=== PATIENT | female | born 1945 | race Caucasian/White ===

== ENCOUNTER 2019-04-13 21:18 | Observation (INO) ==
--- NOTE | 2019-04-13 21:53 | DR.HTN ---
HPI - Time Seen Time seen: 21:43 - Primary Care Physician Primary Care Physician: MEMO LEE - Complaints Chief Complaint Doctors Comments: Patient states she thinks she had a stroke around 2:15 this evening when she was unable to raise her right hand to fix her hair; speech slurred talking out one side of her mouth; right side of her face drooping lasting about 30 minutes and got better but she is still having problems with her words. she is a patient of Dr. Lee in [place] and states she has never had a stroke. Her blood pressure has been elevated today because she did not take her blood pressure medicines last night. She denies chest pain, SOB, cold, cough, fever, vomiting but did have episode nausea earlier today. She denies tobacco or alcohol use but chews nicotine pills and gum because she likes the taste of the nicotine gum. She denies dysuria, hematuria, diarrhea or gerson. She denies history of cerebral hemorrhage. Chief Complaint:: PATIENT STATES AROUND 2-230 SHE FELT FUNNY AND WAS HAVING TROUBLE FIXING HER HAIR WITH HER RIGHT ARM AND NOTICED HER LEFT SIDE OF FACE WAS DROOPING, ALSO STATES SHE FORGOT TO TAKE BP MEDS LAST NIGHT AND TOOK THEM AROUND THE TIME OF HER EPISODE, STATES HE TOOK BP AT HOME AND IT WAS 153/85 AT THE TIME OF EPISODE AND WHEN SHE TOOK LISINOPRIL. Self Treatment fo Chief Complaint: LISINOPRIL - Reviewed Nurses Notes Reviewed: Yes - Source History Provided: Patient - Mode of Arrival Mode of Arrival: Ambulatory - Timing Onset of Chief Complaint: 04/13/19 - Severity Severity: Mild - Context Circumstances: Spontaneous Onset History of: Hypertension Treatment of HTN Prior to Arrival: Recent Cessation (did not take blood pressure medicine last night) - Associated Signs and Symptoms HTN Associated Signs and Symptoms: Weakness (right arm) PMH - PMH Past Medical History: Yes Past Medical History: Hypertension Past Medical History Comment: "THYROID " Past Surgical History: No Surgical History: No History - Family History History of Family Medical Conditions: No - Social History Does patient currently use any type of tobacco product: No Have you used tobacco products in the last 12 months: No Type of Tobacco Use: None Does any household member use tobacco: No Alcohol Use: None Do you use any recreational Drugs:: No Lives With: Spouse Lives Where: Home - infectious screening In the last 2 months have you had wt loss of >10#?: NO Have you had fever, night sweats or hemotysis?: No Have you traveled outside the country in the last 6 months?: No Isolation: Standard ROS - Review of Systems Constitutional: No Symptoms Reported, Weakness (right arm) Eyes: No Symptoms Reported ENTM: No Symptoms Reported Respiratoy: No Symptoms Reported. negative: See HPI, Productive Cough, Non- Productive Cough, Moist Cough, Dry Cough, Hacking Cough, Barking Cough, Brassy Cough, Orthopnea, Short of Breath, Stridor, Wheezing, Hemoptysis, Other Cardiovascular: No Symptoms Reported. negative: See HPI, Chest Pain, Edema, Palpitations, Syncope, Cyanosis, Skin Mottling, Other Gastrointestinal/Abdominal: No Symptoms Reported, Nausea. negative: See HPI, Abdominal Pain, Constipation, Diarrhea, Vomiting, Food Intolerance, Other Genitourinary: No Symptoms Reported. negative: See HPI, Discharge, Dysuria, Frequency, Hematuria, Pain, Bleeding, Other Neurological: No Symptoms Reported, Weakness, Speech Problem. negative: See HPI, Anxiety, Depressed, Emotional Problems, Headache, Numbness, Paresthesia, Pre-existing Deficit, Seizure, Tingling, Tremors, Dizziness, Problems Walking, Other Musculoskeletal: No Symptoms Reported, Right, Arm (weakness) Hematologic/Lymphatic: No Symptoms Reported. negative: See HPI, Anemia, Blood Clots, Easy Bleeding, Easy Bruising, Swollen Glands, Lymphadenopathy, Other Endocrine: No Symptoms Reported Psychiatric: No Symptoms Reported. negative: See HPI, Anxiety, Depression, Hallucinations, Excessive crying, Suicidal, Other PE - General Limitations: No Limitations General Appearance: Alert, In No Apparent Distress. negative: Appears Intoxicated, Anxious, Lethargic, Obtunded, In Distress, Obese, Cachectic, Other - Head Head Exam: Normal Inspection, Atraumatic, Normocephalic - Eyes Eye exam: Normal Appearance, PERRL, EOMI. negative: Scleral Icterus, Conjunctival Injection, Nystagmus, Miosis, Mydrasis, Periorbital Swelling, Periorbital Tenderness, Other Pupils: Regular, Round: Bilateral, Reactive: Bilateral Sclera/Conjunctival: Normal Inspection: Bilateral - ENT ENT Exam: Normal Exam, Normal Oropharynx, Normal External Ear Exam, Mucous Membranes Moist, TM's Normal Bilaterally - Neck Neck Exam: Normal Inspection, Full ROM, Trachea Midline. negative: Tenderness, Meningismus, Lymphadenopathy, Thyromegaly, Other - Chest Chest Inspection: Normal Inspection, Symmetric Chest Wall Rise. negative: Tenderness, Rash, Abscess, Other - Respiratory Respiratory Exam: Normal Lung Sounds Bilat Respiratory Exam: Bilateral Clear to Auscultation - Cardiovascular Cardiovascular Exam: Regular Rate, Normal Rhythm, Normal Heart Sounds. negative: Bradycardia, Tachycardia, Irregular Rhythm, Systolic Murmur, Diastolic Murmur, Rubs, Gallop, Clicks, JVD, +S1, +S2, +S3, +S4, Other - Abdominal Exam Abdominal Exam: Normal Inspection, Normal Bowel Sounds, Soft. negative: Distention, Tenderness, Guarding, Rebound, Rigidity, Dimnished Bowel Sounds, Hyperactive Bowel Sounds, Hypoactive Bowel Sounds, Organomegaly, Trauma, Incision, Ascites, Mass, Bruit, Pulsatile Mass, Hernia, Other Abdominal Tenderness: negative: RUQ, RLQ, LUQ, LLQ, Epigastrium, Suprapubic, Diffuse, Mild, Moderate, Severe, Other - Extremities Extremities Exam: Normal Inspection, Full ROM, Normal Capillary Refill. negative: Tenderness, Edema, Joint Swelling, Calf Tenderness, Other - Back Back Exam: Normal Inspection, Full ROM, Tenderness. negative: (R) CVA Tenderness, (L) CVA Tenderness, Muscle Spasm, Paraspinal Tenderness, Vertebral Tenderness, Rashes, (R) Sciatic Notch Tenderness, (L) Sciatic Notch Tendern, (R) Straight Leg Raise, (L) Straight Leg Raise, Other - Neurologic Neurological Exam: Alert, Oriented X3, CN II-XII Intact, Reflexes Normal. negative: Normal Gait (gait not tested) Patient Oriented To: Person, Place, Time Speech: Fluid Speech Cranial Nerve Exam: EOM Function (II, III, IV, ): Normal, Facial Sensation (V): Normal, Facial Palsy (VII): Normal, Gag reflex (XI): Normal, Spinal Accessory Function (XI): Normal, Tongue Deviation: Normal Cerebellar Function: Finger to Nose: Normal Cerebellar Function: negative: Normal Gait (gait not tested) Motor Strength - LUE: 5/5 Motor Strength - RUE: 5/5 Motor Strength - LLE: 5/5 Motor Strength - RLE: 5/5 Upper Motor Neuron Exam: Babinski Sign: Normal Sensory Exam Upper Extremity: Light Touch: Normal, 2 Point Discrimination: Normal Sensory Exam Lower Extremity: Light Touch: Normal, 2 Point Discrimination: Normal DTR: bicep (L): 2+, bicep (R): 2+, Patellar (L): 2+, patellar (R): 2+ - Psychiatric Psychiatric Exam: Normal Affect, Normal Mood. negative: Depressed, Agitated, Anxious, Flat Affect, Manic, Homicidal Ideation, Suicidal Ideation, Other - Skin Skin Exam: Warm, Dry, Intact, Normal Color. negative: Rash, Cyanosis, Diaphoresis, Erythema, Pallor, Mottled, Other - Vital Signs Vitals: Pulse Rate 53 Respiratory Rate 18 Blood Pressure 229/92 O2 Sat by Pulse Oximetry 97 Course - Reevaluation 1st: Improved - Consultation Called: 00:22 Call Returned: 00:22 (Dr. Rodas to admit) - Education/Counseling Education/Counseling: Patient, Family Educated On: Treatment, Diagnosis, Prognosis, Needs for Follow Up ROR - Labs Reviewed Laboratory Results Reviewed?: Yes (All labs and x-ray results reviewed and discussed with patient) Result Diagrams: 04/13/19 22:10 04/13/19 22:10 - XRAY XRAY Interpreted by: Radiologist (CT head: No acute intracranial hemorrhage) XRAY Findings: CXR:Mild cardiomegaly without acute chest process. - EKG Rate: 47 [place]: Normal Rhythm: SB, PACs Block: None Hypertrophy: None ST: Nonsp - Labs Reviewed Laboratory: WBC 6.6 X10^3/uL (3.6-10.0) 04/13/19 22:10 RBC 4.41 X10^6/uL (3.5-5.4) 04/13/19 22:10 Hgb 12.8 g/dL (12.0-16.0) 04/13/19 22:10 Hct 37.5 % (36.0-47.0) 04/13/19 22:10 MCV 84.9 fL (80.0-100.0) 04/13/19 22:10 MCH 28.9 pg (27.0-34.0) 04/13/19 22:10 MCHC 34.1 g/dL (33.0-35.0) 04/13/19 22:10 RDW 13.4 % (11.6-16.5) 04/13/19 22:10 Plt Count 230 X10^3/uL (150.0-450.0) 04/13/19 22:10 MPV 8.5 fL (7.4-11.0) 04/13/19 22:10 Neut % (Auto) 57.4 % (42.0-75.0) 04/13/19 22:10 Lymph % (Auto) 30.0 % (21.0-51.0) 04/13/19 22:10 [place] % (Auto) 9.9 % (0.0-13.0) 04/13/19 22:10 Eos % (Auto) 2.0 % (0.9-2.9) 04/13/19 22:10 Baso % (Auto) 0.7 % (0.2-1.0) 04/13/19 22:10 Neut # (Auto) 3.8 x10^3/uL (2.2-4.8) 04/13/19 22:10 Lymph # (Auto) 2.0 X10^3/uL (1.3-2.9) 04/13/19 22:10 [place] # (Auto) 0.7 x10^3/uL (0.3-0.8) 04/13/19 22:10 Eos # (Auto) 0.1 x10^3/uL (0.0-0.2) 04/13/19 22:10 Baso # (Auto) 0.0 X10^3/uL (0.0-0.1) 04/13/19 22:10 Absolute Nucleated RBC 0.0 /100WBC 04/13/19 22:10 PT 13.9 SECONDS (11.8-14.3) 04/13/19 22:10 INR Target Range - 04/13/19 22:10 INR 1.11 (0.8-1.3) 04/13/19 22:10 APTT 25.3 SECONDS (22.9-36.5) 04/13/19 22:10 PTT Comment - 04/13/19 22:10 D-Dimer 332 ng/mL (0-400) 04/13/19 22:10 Sodium 140 mmol/L (136-145) 04/13/19 22:10 Corrected Sodium 140 mmol/L (136-145) 04/13/19 22:10 Potassium 4.1 mmol/L (3.5-5.1) 04/13/19 22:10 Chloride 106 mmol/L (98-107) 04/13/19 22:10 Carbon Dioxide 29.8 mmol/L (21-32) 04/13/19 22:10 BUN 22 mg/dL (7-18) H 04/13/19 22:10 Creatinine 1.00 mg/dL (0.55-1.02) 04/13/19 22:10 Est GFR (MDRD) Af Amer > 60 (>60) 04/13/19 22:10 Est GFR (MDRD) Non-Af 57 (>60) L 04/13/19 22:10 Glucose 114 mg/dL (65-99) H 04/13/19 22:10 Calcium 8.7 mg/dL (8.5-10.1) 04/13/19 22:10 Corrected Calcium 9.4 mg/dL (8.5-10.1) 04/13/19 22:10 Magnesium 2.2 mg/dL (1.7-2.9) 04/13/19 22:10 Total Bilirubin 0.30 mg/dL (0.2-1.0) 04/13/19 22:10 AST 15 Units/L (15-37) 04/13/19 22:10 ALT 15 Units/L (12-78) 04/13/19 22:10 Alkaline Phosphatase 84 Units/L (46-116) 04/13/19 22:10 Creatine Kinase 61 Units/L (26-192) 04/13/19 22:10 CK-MB (CK-2) < 1.0 ng/mL (0-4.0) 04/13/19 22:10 CK/CKMB % Calc 1.6 % (<4) 04/13/19 22:10 Troponin I < 0.02 ng/mL (0-1.5) 04/13/19 22:10 Total Protein 6.3 g/dL (6.4-8.2) L 04/13/19 22:10 Albumin 3.1 g/dL (3.4-5.0) L 04/13/19 22:10 Globulin 3.2 g/dL (2.5-4.5) 04/13/19 22:10 Albumin/Globulin Ratio 1.0 Ratio (1.1-2.1) L 04/13/19 22:10 Opioid - Opioid Risk Tool Total: 0 Total Score Risk Category: Low Risk - Diagnosis Discharge Problem: Acute alteration in mental status, Acute right hemiparesis, Sinus bradycardia, Accelerated hypertension, Cardiomegaly, Hyperglycemia - Discharge Plan Disposition: ADMITTED INPATIENT Condition: Stable - Follow ups/Referrals Follow ups/Referrals: MEMO LEE [Primary Care Provider] - 3 days - Instructions
[2019-04-13] MEDS ORDERED: CATAPRES TAB 0.2 MG PO ONE (21:55)
[2019-04-13] MEDS ORDERED: CATAPRES TAB 0.2 MG ONE (22:11)
[2019-04-13 22:22] LABS: BASOPHILS % (AUTO) 0.7 % (0.2-1.0); EOSINOPHILS # (AUTO) 0.1 x10^3/uL (0.0-0.2); HEMATOCRIT 37.5 % (36.0-47.0); HEMOGLOBIN 12.8 g/dL (12.0-16.0); MEAN CORPUSCULAR HEMOGLOBIN 28.9 pg (27.0-34.0); MEAN CORPUSCULAR HGB CONC 34.1 g/dL (33.0-35.0); MEAN CORPUSCULAR VOLUME 84.9 fL (80.0-100.0); MEAN PLATELET VOLUME 8.5 fL (7.4-11.0); MONOCYTES # (AUTO) 0.7 x10^3/uL (0.3-0.8); MONOCYTES % (AUTO) 9.9 % (0.0-13.0); NEUTROPHILS # (AUTO) 3.8 x10^3/uL (2.2-4.8); NEUTROPHILS % (AUTO) 57.4 % (42.0-75.0); PLATELET COUNT 230 X10^3/uL (150.0-450.0); RED BLOOD COUNT 4.41 X10^6/uL (3.5-5.4); RED CELL DISTRIBUTION WIDTH 13.4 % (11.6-16.5); WHITE BLOOD COUNT 6.6 X10^3/uL (3.6-10.0)
[2019-04-13 22:39] LABS: BLOOD UREA NITROGEN 22 mg/dL (7-18); CALCIUM 8.7 mg/dL (8.5-10.1); CARBON DIOXIDE 29.8 mmol/L (21-32); CHLORIDE 106 mmol/L (98-107); COR NA(FOR HYPERGLY) 140 mmol/L (136-145); SODIUM 140 mmol/L (136-145); TROPONIN I < 0.02 ng/mL (0-1.5); eGFR NON BLACK RACES 57 (>60)
[2019-04-13 22:44] LABS: ALANINE AMINOTRANSFERASE 15 Units/L (12-78); ALBUMIN 3.1 g/dL (3.4-5.0); ALKALINE PHOSPHATASE 84 Units/L (46-116); ASPARTATE AMINO TRANSFERASE 15 Units/L (15-37); CKMB % 1.6 % (<4); COR CA(FOR HYPOALB) 9.4 mg/dL (8.5-10.1); CREATINE KINASE 61 Units/L (26-192); CREATINE KINASE MB < 1.0 ng/mL (0-4.0); MAGNESIUM 2.2 mg/dL (1.7-2.9); TOTAL PROTEIN 6.3 g/dL (6.4-8.2)
--- NOTE | 2019-04-13 23:16 | CT ---
CT head without contrastIndication: Right arm weakness, speech deficiencyComparison: NoneTechnique: CT images of the head were obtained without contrast. Automatic exposure control was utilized.Findings: There is age-appropriate generalized cortical involution with concomitant ventricular and sulcal enlargement. There is no evidence for acute bleed, mass effect, or abnormal extra-axial collection. No acute osseous abnormality. The paranasal sinuses and mastoid air cells are clear.Impression: No acute intracranial hemorrhage.Consider MRI if there is concern for acute infarct and it will make a difference in patient management.Reported By:
--- NOTE | 2019-04-13 23:18 | RAD ---
Chest, 1 viewIndication: Chest painComparison: NoneFindings: Cardiac silhouette is mildly enlarged. The lungs are hypoinflated but grossly clear without overt edema or focal infiltrates. No significant pleural effusion or pneumothorax.Impression: Mild cardiomegaly without acute chest process.Reported By:
[2019-04-14] MEDS ORDERED: NS 1/2 1000 ML IV 1,000 ML IV ONE (02:01)
[2019-04-14] MEDS: NS 1/2 1000 ML IV 1,000 ML IV SCH (02:05)
[2019-04-14 03:08] VITALS: BMI 32.2
[2019-04-14 06:10] LABS: BLOOD UREA NITROGEN 19 mg/dL (7-18); CALCIUM 8.6 mg/dL (8.5-10.1); CARBON DIOXIDE 28.4 mmol/L (21-32); CHLORIDE 106 mmol/L (98-107); COR NA(FOR HYPERGLY) 140 mmol/L (136-145); CREATININE 0.86 mg/dL (0.55-1.02); SODIUM 139 mmol/L (136-145); eGFR NON BLACK RACES > 60 (>60)
[2019-04-14 06:23] LABS: CHOL/HDL RATIO 4.6 (0.0-5.0); TSH (3RD GENERATION) 1.367 uIU/mL (0.358-3.74)
[2019-04-14] MEDS ORDERED: ZESTRIL TAB 20 MG PO SCH (09:00)
[2019-04-14] MEDS ORDERED: ZESTRIL TAB 20 MG ONE (09:30)
[2019-04-14] MEDS: SYNTHROID 88 mcg TAB PO SCH (09:52)
[2019-04-14] MEDS: PEPCID 20 MG IV PREMIX* 20 MG/50 ML BAG IV SCH (09:52)
[2019-04-14] MEDS ORDERED: CATAPRES TAB 0.1 MG ONE (12:58)
[2019-04-14] MEDS ORDERED: ZOFRAN INJ 4 MG VIAL ONE (12:58)
[2019-04-14] MEDS ORDERED: ZOFRAN INJ 4 MG VIAL IVP ONE (13:00)
--- NOTE | 2019-04-14 13:14 | DR.H&P ---
H&P History & Physical for Day of: H&P Date: 04/14/19 Chief Complaint Chief Complaint: Right hand weakness and face droop Allergies Allergies Allergy/AdvReac Type Severity Reaction Status Date / Time No Known Drug Allergies Allergy Verified 04/13/19 21:32 History of Present Illness History of Present Illness: Pt is a 73 yo f pmhx HTN, Hypothyroidism, presenting after having episode of right hand weakness when she was brushing her hair and facial droop. She also reports feeling of imbalance. She reports event lasted 20-30 minutes, her was also with her. She reports her blood pressure being elevated on arrival in ED. Denies headache, chest pain, shortness of breath, abdominal pain, edema. Past Medical History Past Medical History: Hypertension Past Surgical History Surgical History: No History Family History Family Medical History: Cancer Social History Does patient currently use any type of tobacco product: Yes Have you used tobacco products in the last 12 months: Yes Type of Tobacco Use: [place]orette How many years tobacco product used: 40 Does any household member use tobacco: No Alcohol Use: None Drug Use: None Medications Home Medications: No Known Drug Allergies Allergy (Verified 04/13/19 21:32) CONTINUE taking the following medications duloxetine 60 mg PO DAILY 04/13/19 [History] levothyroxine 88 mcg PO DAILY 04/13/19 [History] lisinopril 20 mg PO DAILY 04/13/19 [History] Labs Result Diagrams: 04/13/19 22:10 04/14/19 05:06 Labs: Laboratory WBC 6.6 X10^3/uL (3.6-10.0) 04/13/19 22:10 RBC 4.41 X10^6/uL (3.5-5.4) 04/13/19 22:10 Hgb 12.8 g/dL (12.0-16.0) 04/13/19 22:10 Hct 37.5 % (36.0-47.0) 04/13/19 22:10 MCV 84.9 fL (80.0-100.0) 04/13/19 22:10 MCH 28.9 pg (27.0-34.0) 04/13/19 22:10 MCHC 34.1 g/dL (33.0-35.0) 04/13/19 22:10 RDW 13.4 % (11.6-16.5) 04/13/19 22:10 Plt Count 230 X10^3/uL (150.0-450.0) 04/13/19 22:10 MPV 8.5 fL (7.4-11.0) 04/13/19 22:10 Neut % (Auto) 57.4 % (42.0-75.0) 04/13/19 22:10 Lymph % (Auto) 30.0 % (21.0-51.0) 04/13/19 22:10 [place] % (Auto) 9.9 % (0.0-13.0) 04/13/19 22:10 Eos % (Auto) 2.0 % (0.9-2.9) 04/13/19 22:10 Baso % (Auto) 0.7 % (0.2-1.0) 04/13/19 22:10 Neut # (Auto) 3.8 x10^3/uL (2.2-4.8) 04/13/19 22:10 Lymph # (Auto) 2.0 X10^3/uL (1.3-2.9) 04/13/19 22:10 [place] # (Auto) 0.7 x10^3/uL (0.3-0.8) 04/13/19 22:10 Eos # (Auto) 0.1 x10^3/uL (0.0-0.2) 04/13/19 22:10 Baso # (Auto) 0.0 X10^3/uL (0.0-0.1) 04/13/19 22:10 Absolute Nucleated RBC 0.0 /100WBC 04/13/19 22:10 PT 13.9 SECONDS (11.8-14.3) 04/13/19 22:10 INR Target Range - 04/13/19 22:10 INR 1.11 (0.8-1.3) 04/13/19 22:10 APTT 25.3 SECONDS (22.9-36.5) 04/13/19 22:10 PTT Comment - 04/13/19 22:10 D-Dimer 332 ng/mL (0-400) 04/13/19 22:10 Sodium 139 mmol/L (136-145) 04/14/19 05:06 Corrected Sodium 140 mmol/L (136-145) 04/14/19 05:06 Potassium 4.4 mmol/L (3.5-5.1) 04/14/19 05:06 Chloride 106 mmol/L (98-107) 04/14/19 05:06 Carbon Dioxide 28.4 mmol/L (21-32) 04/14/19 05:06 BUN 19 mg/dL (7-18) H 04/14/19 05:06 Creatinine 0.86 mg/dL (0.55-1.02) 04/14/19 05:06 Est GFR (MDRD) Af Amer > 60 (>60) 04/14/19 05:06 Est GFR (MDRD) Non-Af > 60 (>60) 04/14/19 05:06 Glucose 132 mg/dL (65-99) H 04/14/19 05:06 Calcium 8.6 mg/dL (8.5-10.1) 04/14/19 05:06 Corrected Calcium 9.4 mg/dL (8.5-10.1) 04/13/19 22:10 Magnesium 2.2 mg/dL (1.7-2.9) 04/13/19 22:10 Total Bilirubin 0.30 mg/dL (0.2-1.0) 04/13/19 22:10 AST 15 Units/L (15-37) 04/13/19 22:10 ALT 15 Units/L (12-78) 04/13/19 22:10 Alkaline Phosphatase 84 Units/L (46-116) 04/13/19 22:10 Creatine Kinase 61 Units/L (26-192) 04/13/19 22:10 CK-MB (CK-2) < 1.0 ng/mL (0-4.0) 04/13/19 22:10 CK/CKMB % Calc 1.6 % (<4) 04/13/19 22:10 Troponin I < 0.02 ng/mL (0-1.5) 04/13/19 22:10 Total Protein 6.3 g/dL (6.4-8.2) L 04/13/19 22:10 Albumin 3.1 g/dL (3.4-5.0) L 04/13/19 22:10 Globulin 3.2 g/dL (2.5-4.5) 04/13/19 22:10 Albumin/Globulin Ratio 1.0 Ratio (1.1-2.1) L 04/13/19 22:10 Triglycerides 116 mg/dL (0-150) 04/14/19 05:06 Cholesterol 155 mg/dL (0-200) 04/14/19 05:06 LDL Cholesterol, Calc 98 mg/dL (0-100) 04/14/19 05:06 HDL Cholesterol 34 mg/dL (40-60) L 04/14/19 05:06 Cholesterol/HDL Ratio 4.6 (0.0-5.0) 04/14/19 05:06 TSH 3rd Generation 1.367 uIU/mL (0.358-3.74) 04/14/19 05:06 Urine Opiates Screen Negative (NEG=<300) 04/13/19 04:42 Urine Methadone Screen Negative (NEG=<300) 04/13/19 04:42 Ur Barbiturates Screen Negative (NEG=<200) 04/13/19 04:42 Ur Phencyclidine Scrn Negative (NEG=<25) 04/13/19 04:42 Ur Amphetamines Screen Negative (NEG=<1000) 04/13/19 04:42 U Benzodiazepines Scrn Negative (NEG=<200) 04/13/19 04:42 Urine Cocaine Screen Negative (NEG=<300) 04/13/19 04:42 U Marijuana (THC) Screen Negative (NEG=<50) 04/13/19 04:42 Review of Systems Constitutional: denies Fever and Chills Eyes: No Symptoms Reported ENT: Other (mouth droop during episode ) Respiratory: No Symptoms Reported Cardiovascular: No Symptoms Reported Gastrointestinal: No Symptoms Reported Genitourinary: No Symptoms Reported Musculoskeletal: No Symptoms Reported Skin: No Symptoms Reported Neurological: Weakness (right arm), Incoordination and Change in Speech; denies Seizures Physical Exam Vital Signs: Temperature 97.6 F Pulse Rate [Right] 48 Pulse Rate 53 Respiratory Rate 18 Blood Pressure [Right Arm] 202/86 Blood Pressure 229/92 O2 Sat by Pulse Oximetry 98 Oriented: Normal Eyes: Normal Ear: Normal Nose: Normal Respiratory: Clear Throughout Cardiovascular: Normal : Normal Auscultation: Bowel Sounds: Normal Palpation: Normal Tenderness: Normal Skin: Normal Musculoskeletal: Normal Psychiatric: Normal Speech Pattern: Clear Assessment/Plan (1) TIA (transient ischemic attack): Status: Acute Plan: CT head negative, will evaluate further with MRI brain, Echo, Carotid doppler. Continue to monitor. (2) Sinus bradycardia: Status: Acute Plan: Continue to monitor. (3) Accelerated hypertension: Status: Acute Plan: Pt taking lisinopril. Will monitor BP and adjust medications accordingly. (4) Hyperglycemia: Status: Acute Plan: will get A1c.
[2019-04-14] MEDS: CATAPRES TAB 0.1 MG PO ONE ×2 (13:19→13:20)
[2019-04-14] MEDS: LIPITOR TAB 20 MG PO SCH (16:58)
[2019-04-15] MEDS: NS 1/2 1000 ML IV 1,000 ML IV SCH ×2 (02:58→05:26)
[2019-04-15 05:32] LABS: BASOPHILS % (AUTO) 0.5 % (0.2-1.0); EOSINOPHILS # (AUTO) 0.2 x10^3/uL (0.0-0.2); EOSINOPHILS % (AUTO) 1.9 % (0.9-2.9); HEMATOCRIT 38.5 % (36.0-47.0); HEMOGLOBIN 13.1 g/dL (12.0-16.0); LYMPHOCYTES # (AUTO) 2.4 X10^3/uL (1.3-2.9); LYMPHOCYTES % (AUTO) 30.5 % (21.0-51.0); MEAN CORPUSCULAR HEMOGLOBIN 29.2 pg (27.0-34.0); MEAN CORPUSCULAR VOLUME 85.7 fL (80.0-100.0); MEAN PLATELET VOLUME 9.1 fL (7.4-11.0); MONOCYTES # (AUTO) 0.6 x10^3/uL (0.3-0.8); MONOCYTES % (AUTO) 7.5 % (0.0-13.0); NEUTROPHILS # (AUTO) 4.8 x10^3/uL (2.2-4.8); NEUTROPHILS % (AUTO) 59.6 % (42.0-75.0); PLATELET COUNT 213 X10^3/uL (150.0-450.0); RED CELL DISTRIBUTION WIDTH 13.7 % (11.6-16.5)
[2019-04-15] MEDS ORDERED: NS 1/2 1000 ML IV 1,000 ML IV ONE (05:34)
[2019-04-15 05:40] LABS: ALANINE AMINOTRANSFERASE 15 Units/L (12-78); ALBUMIN 3.1 g/dL (3.4-5.0); ALKALINE PHOSPHATASE 80 Units/L (46-116); ASPARTATE AMINO TRANSFERASE 15 Units/L (15-37); BLOOD UREA NITROGEN 16 mg/dL (7-18); CALCIUM 8.5 mg/dL (8.5-10.1); CARBON DIOXIDE 26.2 mmol/L (21-32); CHLORIDE 105 mmol/L (98-107); COR CA(FOR HYPOALB) 9.2 mg/dL (8.5-10.1); COR NA(FOR HYPERGLY) 140 mmol/L (136-145); CREATININE 0.84 mg/dL (0.55-1.02); MAGNESIUM 2.1 mg/dL (1.7-2.9); SODIUM 140 mmol/L (136-145); TOTAL PROTEIN 6.4 g/dL (6.4-8.2); eGFR NON BLACK RACES > 60 (>60)
[2019-04-15] MEDS ORDERED: ZESTRIL TAB 20 MG ONE (08:08)
[2019-04-15] MEDS ORDERED: ZESTRIL TAB 20 MG PO SCH (09:00)
[2019-04-15] MEDS: SYNTHROID 88 mcg TAB PO SCH (09:47)
[2019-04-15] MEDS: PEPCID 20 MG IV PREMIX* 20 MG/50 ML BAG IV SCH (09:47)
[2019-04-15] MEDS: LIPITOR TAB 20 MG PO SCH (09:48)
--- NOTE | 2019-04-15 10:12 | PCM.PROG ---
Progress Note Progress Note for Day of Date of Exam: 04/15/19 Subjective Subjective: Pt had accelerated hypertension yesterday that caused her to feel nauseous. She was given clonidine x 1 dose that helped control blood pressure. Will increase lisinopril to 40mg. Added Lipitor and ASA 81 to reduce risk of CVA after TIA. Past Medical Family Social History Past Med/Fam/Surg Hx: No changes since H&P Allergies: Allergies No Known Drug Allergies Allergy (Verified 04/13/19 21:32) Review of Systems ROS: No change since H&P Vital Signs and I&O's Vital Signs: Temperature 98.3 F Pulse Rate [Right] 78 Pulse Rate 53 Respiratory Rate 18 Blood Pressure [Right Arm] 158/68 Blood Pressure 229/92 O2 Sat by Pulse Oximetry 98 Intake and Output: Intake & Output 04/12/19 04/13/19 04/14/19 04/15/19 23:59 23:59 23:59 23:59 Intake Total 800 / 800 100 / 100 Balance 800 / 800 100 / 100 Physical Exam Oriented: Normal Eyes: Normal Ear: Normal Nose: Normal Cardiovascular: Normal : Normal Auscultation: Bowel Sounds: Normal Tenderness: Normal Skin: Normal Musculoskeletal: Normal Psychiatric: Normal Mood Description: Calm Speech Pattern: Clear and Appropriate Laboratory and Diagnostics Result Diagrams: 04/15/19 04:50 04/15/19 04:50 Labs: Laboratory WBC 8.0 X10^3/uL (3.6-10.0) 04/15/19 04:50 RBC 4.50 X10^6/uL (3.5-5.4) 04/15/19 04:50 Hgb 13.1 g/dL (12.0-16.0) 04/15/19 04:50 Hct 38.5 % (36.0-47.0) 04/15/19 04:50 MCV 85.7 fL (80.0-100.0) 04/15/19 04:50 MCH 29.2 pg (27.0-34.0) 04/15/19 04:50 MCHC 34.0 g/dL (33.0-35.0) 04/15/19 04:50 RDW 13.7 % (11.6-16.5) 04/15/19 04:50 Plt Count 213 X10^3/uL (150.0-450.0) 04/15/19 04:50 MPV 9.1 fL (7.4-11.0) 04/15/19 04:50 Neut % (Auto) 59.6 % (42.0-75.0) 04/15/19 04:50 Lymph % (Auto) 30.5 % (21.0-51.0) 04/15/19 04:50 [place] % (Auto) 7.5 % (0.0-13.0) 04/15/19 04:50 Eos % (Auto) 1.9 % (0.9-2.9) 04/15/19 04:50 Baso % (Auto) 0.5 % (0.2-1.0) 04/15/19 04:50 Neut # (Auto) 4.8 x10^3/uL (2.2-4.8) 04/15/19 04:50 Lymph # (Auto) 2.4 X10^3/uL (1.3-2.9) 04/15/19 04:50 [place] # (Auto) 0.6 x10^3/uL (0.3-0.8) 04/15/19 04:50 Eos # (Auto) 0.2 x10^3/uL (0.0-0.2) 04/15/19 04:50 Baso # (Auto) 0.0 X10^3/uL (0.0-0.1) 04/15/19 04:50 Absolute Nucleated RBC 0.1 /100WBC 04/15/19 04:50 PT 13.9 SECONDS (11.8-14.3) 04/13/19 22:10 INR Target Range - 04/13/19 22:10 INR 1.11 (0.8-1.3) 04/13/19 22:10 APTT 25.3 SECONDS (22.9-36.5) 04/13/19 22:10 PTT Comment - 04/13/19 22:10 D-Dimer 332 ng/mL (0-400) 04/13/19 22:10 Sodium 140 mmol/L (136-145) 04/15/19 04:50 Corrected Sodium 140 mmol/L (136-145) 04/15/19 04:50 Potassium 4.1 mmol/L (3.5-5.1) 04/15/19 04:50 Chloride 105 mmol/L (98-107) 04/15/19 04:50 Carbon Dioxide 26.2 mmol/L (21-32) 04/15/19 04:50 BUN 16 mg/dL (7-18) 04/15/19 04:50 Creatinine 0.84 mg/dL (0.55-1.02) 04/15/19 04:50 Est GFR (MDRD) Af Amer > 60 (>60) 04/15/19 04:50 Est GFR (MDRD) Non-Af > 60 (>60) 04/15/19 04:50 Glucose 120 mg/dL (65-99) H 04/15/19 04:50 Hemoglobin A1c 6.3 % 04/14/19 05:06 Calcium 8.5 mg/dL (8.5-10.1) 04/15/19 04:50 Corrected Calcium 9.2 mg/dL (8.5-10.1) 04/15/19 04:50 Magnesium 2.1 mg/dL (1.7-2.9) 04/15/19 04:50 Total Bilirubin 0.40 mg/dL (0.2-1.0) 04/15/19 04:50 AST 15 Units/L (15-37) 04/15/19 04:50 ALT 15 Units/L (12-78) 04/15/19 04:50 Alkaline Phosphatase 80 Units/L (46-116) 04/15/19 04:50 Creatine Kinase 61 Units/L (26-192) 04/13/19 22:10 CK-MB (CK-2) < 1.0 ng/mL (0-4.0) 04/13/19 22:10 CK/CKMB % Calc 1.6 % (<4) 04/13/19 22:10 Troponin I < 0.02 ng/mL (0-1.5) 04/14/19 14:54 Total Protein 6.4 g/dL (6.4-8.2) 04/15/19 04:50 Albumin 3.1 g/dL (3.4-5.0) L 04/15/19 04:50 Globulin 3.3 g/dL (2.5-4.5) 04/15/19 04:50 Albumin/Globulin Ratio 0.9 Ratio (1.1-2.1) L 04/15/19 04:50 Triglycerides 116 mg/dL (0-150) 04/14/19 05:06 Cholesterol 155 mg/dL (0-200) 04/14/19 05:06 LDL Cholesterol, Calc 98 mg/dL (0-100) 04/14/19 05:06 HDL Cholesterol 34 mg/dL (40-60) L 04/14/19 05:06 Cholesterol/HDL Ratio 4.6 (0.0-5.0) 04/14/19 05:06 TSH 3rd Generation 1.367 uIU/mL (0.358-3.74) 04/14/19 05:06 Urine Opiates Screen Negative (NEG=<300) 04/13/19 04:42 Urine Methadone Screen Negative (NEG=<300) 04/13/19 04:42 Ur Barbiturates Screen Negative (NEG=<200) 04/13/19 04:42 Ur Phencyclidine Scrn Negative (NEG=<25) 04/13/19 04:42 Ur Amphetamines Screen Negative (NEG=<1000) 04/13/19 04:42 U Benzodiazepines Scrn Negative (NEG=<200) 04/13/19 04:42 Urine Cocaine Screen Negative (NEG=<300) 04/13/19 04:42 U Marijuana (THC) Screen Negative (NEG=<50) 04/13/19 04:42 Plan (1) TIA (transient ischemic attack): Status: Acute Plan: CT head negative, will evaluate further with MRI brain, Echo, Carotid doppler. ASA 81mg, Lipitor 20mg Continue to monitor. (2) Sinus bradycardia: Status: Acute Plan: Continue to monitor. Resolved (3) Accelerated hypertension: Status: Acute Plan: Lisinopril 40mg (4) Hyperglycemia: Status: Acute Plan: A1c 6.4 (5) Prediabetes: Status: Acute Plan: A1c 6.4
[2019-04-15] MEDS: APRESOLINE INJ 20 MG VIAL IVP PRN ×2 (12:26→23:45)
[2019-04-15] MEDS: ASPIRIN EC 81 MG PO SCH (12:28)
[2019-04-15] MEDS: LOVENOX INJ 40 MG SYR SC SCH (12:28)
[2019-04-15] MEDS: VISTARIL PO PRN ×2 (13:34→23:25)
--- NOTE | 2019-04-15 14:31 | VAS ---
History: TIA and dizzinessStudy: Carotid duplex ultrasoundComparison: NoneFindings: Images show intimal thickening. There is a small calcified plaque in the right carotid bulb. There is severe calcified plaque at the left carotid bifurcation and carotid bulb.There is antegrade flow in the vertebral arteries.Peak systolic velocity in the right internal carotid artery is 127 centimeters/second and in the distal right common carotid artery is 94.67 centimeters/second for ratio of 1.34.Peak systolic velocity in the left internal carotid artery is 178.84 centimeters/second with a peak diastolic velocity of 38.8. Peak systolic velocity in the distal left common carotid artery is 192.5 centimeters/second. Peak systolic velocity in the mid left common carotid artery is 80.36 centimeters/second. Ratio is therefore 2.4. Impression:1. Severe calcified plaque at the left carotid bifurcation causing 50-70% stenosis2. Mild less than 50% stenosis in the right internal carotid artery with a small calcified plaque Reported By:
--- NOTE | 2019-04-15 16:55 | MRI ---
History: Right arm weakness and speech difficultyExam: MRI brain without contrastComparison: CT head 04/13/2019Technique: Routine multiplanar multisequence imaging was performed through the brain without contrast. Findings:The ventricles are mildly enlarged with diffuse mild prominence of the cortical sulci. There is a small rounded focus of abnormal signal in the left gonzalez radiata inferiorly and extending into the left basal ganglia laterally on the diffusion-weighted data set . No intracranial hemorrhage, significant edema or mass effect is seen in the area . . There is no extra-axial fluid collection or mass. The midline structures are unremarkable. There are some punctate and confluent areas of abnormal signal scattered in the periventricular white matter bilaterally . There is no extra-axial fluid collection or mass. The vascular structures show normal flow void . The 7th and 8th nerve complexes are symmetric and normal size and signal intensity.IMPRESSION: Small acute lacunar infarct along the gonzalez radiata on the left extending inferiorly into the basal ganglia laterally with no significant edema and no intracranial hemorrhage or mass effect identified in the area.Mild atrophy and minimal chronic microischemic changes scattered in the deep white matter.Reported By:
[2019-04-15] MEDS ORDERED: RESTORIL CAP 15 MG PO PRN (20:29)
[2019-04-16] MEDS: NS 1/2 1000 ML IV 1,000 ML IV SCH (01:24)
[2019-04-16 05:52] LABS: BASOPHILS % (AUTO) 0.3 % (0.2-1.0); EOSINOPHILS % (AUTO) 0.4 % (0.9-2.9); HEMATOCRIT 41.2 % (36.0-47.0); HEMOGLOBIN 14.2 g/dL (12.0-16.0); LYMPHOCYTES # (AUTO) 2.1 X10^3/uL (1.3-2.9); LYMPHOCYTES % (AUTO) 21.7 % (21.0-51.0); MEAN CORPUSCULAR HEMOGLOBIN 29.4 pg (27.0-34.0); MEAN CORPUSCULAR HGB CONC 34.4 g/dL (33.0-35.0); MEAN CORPUSCULAR VOLUME 85.5 fL (80.0-100.0); MEAN PLATELET VOLUME 9.1 fL (7.4-11.0); MONOCYTES # (AUTO) 0.7 x10^3/uL (0.3-0.8); MONOCYTES % (AUTO) 7.3 % (0.0-13.0); NEUTROPHILS # (AUTO) 6.9 x10^3/uL (2.2-4.8); NEUTROPHILS % (AUTO) 70.3 % (42.0-75.0); PLATELET COUNT 241 X10^3/uL (150.0-450.0); RED BLOOD COUNT 4.82 X10^6/uL (3.5-5.4); RED CELL DISTRIBUTION WIDTH 13.5 % (11.6-16.5); WHITE BLOOD COUNT 9.8 X10^3/uL (3.6-10.0)
[2019-04-16 06:16] LABS: ALANINE AMINOTRANSFERASE 14 Units/L (12-78); ALBUMIN 3.4 g/dL (3.4-5.0); ALKALINE PHOSPHATASE 92 Units/L (46-116); ASPARTATE AMINO TRANSFERASE 15 Units/L (15-37); BLOOD UREA NITROGEN 13 mg/dL (7-18); CHLORIDE 105 mmol/L (98-107); COR NA(FOR HYPERGLY) 140 mmol/L (136-145); CREATININE 0.86 mg/dL (0.55-1.02); SODIUM 140 mmol/L (136-145); TOTAL PROTEIN 7.1 g/dL (6.4-8.2); eGFR NON BLACK RACES > 60 (>60)
[2019-04-16] MEDS ORDERED: HYDROCHLOROTHIAZIDE 12.5 MG CAP PO SCH (09:00)
[2019-04-16] MEDS ORDERED: ZESTRIL TAB 40 MG PO SCH (09:00)
[2019-04-16] MEDS ORDERED: LIPITOR TAB 20 MG PO SCH (09:00)
[2019-04-16] MEDS: PEPCID 20 MG IV PREMIX* 20 MG/50 ML BAG IV SCH (09:34)
[2019-04-16] MEDS: LOVENOX INJ 40 MG SYR SC SCH (09:35)
[2019-04-16] MEDS: SYNTHROID 88 mcg TAB PO SCH (09:35)
[2019-04-16] MEDS: ASPIRIN EC 81 MG PO SCH (09:35)
--- NOTE | 2019-04-16 11:12 | W.DIS.FURT ---
Summary of Discharge Discharge Summary of Date Date of Exam: 04/16/19 Admission Date Date of Admission: 04/13/19 Admission Diagnosis Patient Problems (Updated 04/16/19 @ 11:55 by Ok Rodas) Carotid stenosis, bilateral (Acute) I65.23 Acute CVA (cerebrovascular accident) (Acute) I63.9 Prediabetes (Acute) R73.03 TIA (transient ischemic attack) (Acute) G45.9 Acute alteration in mental status (Acute) R41.82 Acute right hemiparesis (Acute) G81.91 Sinus bradycardia (Acute) R00.1 Accelerated hypertension (Acute) I10 Cardiomegaly (Acute) I51.7 Hyperglycemia (Acute) R73.9 Hospital Course: Pt is a 73 yo f pmhx HTN, Hypothyroidism, admitted after having TIA episode of right hand weakness when she was brushing her hair, facial droop, and imbalance. She reports event lasted 20-30 minutes, and that her was also with her during event. While inpatient, patient initially had residual weakness in right hand that resolved. CT head negative, however MRI did show findings consistent with acute cva. Carotid duplex results see below. Pt was evaluated by PT/OT. Referral to vascular surgery in [place], [place] to be set up by lining caser. She was started on aspirin, lipitor, and blood pressure medications adjusted (lisinopril, hydrochlorothiazide). Physical exam unremarkable on day of discharge and patient discharged home with instructions to follow up with referrals and pcp within 1 week. MRI: small acute lacunar infarct along the gonzalez radiata on the left extending inferiorly into the basal ganglia laterally with no significant edema and no intracranial hemorrhage or mass effect identified in the area. Mild atrophy and minimal chronic microischemic changes scattered in the deep white matter. Carotid duplex: 1. Severe calcified plaque at the left carotid bifurcation causing 50-70% stenosis. 2. Mild less than 50% stenosis in the right internal carotid artery with a small calcified plaque. Vital Signs: Vital Signs (72 hours) 04/13/19 21:26 04/14/19 01:09 04/14/19 01:35 Temperature 98.0 F 97.9 F Pulse Rate 53 L Pulse Rate [Right] 48 L 49 L Respiratory Rate 18 20 Blood Pressure 229/92 Blood Pressure [Right Arm] 144/60 135/66 O2 Sat by Pulse Oximetry 97 97 95 04/14/19 04:00 04/14/19 07:41 04/14/19 12:00 Temperature 98.4 F 98.1 F 97.6 F Pulse Rate Pulse Rate [Right] 44 L 49 L 48 L Respiratory Rate 18 17 18 Blood Pressure Blood Pressure [Right Arm] 157/65 141/66 202/86 O2 Sat by Pulse Oximetry 98 96 98 04/14/19 16:00 04/14/19 20:00 04/15/19 00:00 Temperature 98.2 F 97.5 F L 98.3 F Pulse Rate Pulse Rate [Right] 53 L 69 78 Respiratory Rate 18 20 18 Blood Pressure Blood Pressure [Right Arm] 135/62 169/74 158/68 O2 Sat by Pulse Oximetry 99 98 04/15/19 08:00 04/15/19 12:00 04/15/19 12:33 Temperature 97.8 F 97.9 F Pulse Rate Pulse Rate [Right] 51 L 53 L Respiratory Rate 18 18 Blood Pressure Blood Pressure [Right Arm] 168/71 201/77 189/84 O2 Sat by Pulse Oximetry 94 L 96 04/15/19 12:38 04/15/19 12:45 04/15/19 16:20 Temperature 98.5 F Pulse Rate Pulse Rate [Right] 54 L Respiratory Rate 20 Blood Pressure Blood Pressure [Right Arm] 188/86 176/82 151/67 O2 Sat by Pulse Oximetry 98 04/15/19 20:00 04/16/19 00:00 04/16/19 04:00 Temperature 98.1 F 98.4 F 98.4 F Pulse Rate Pulse Rate [Right] 69 64 55 L Respiratory Rate 20 20 18 Blood Pressure Blood Pressure [Right Arm] 149/67 136/65 145/68 O2 Sat by Pulse Oximetry 98 95 96 Labs: Laboratory Last Values WBC 9.8 X10^3/uL (3.6-10.0) 04/16/19 05:16 RBC 4.82 X10^6/uL (3.5-5.4) 04/16/19 05:16 Hgb 14.2 g/dL (12.0-16.0) 04/16/19 05:16 Hct 41.2 % (36.0-47.0) 04/16/19 05:16 MCV 85.5 fL (80.0-100.0) 04/16/19 05:16 MCH 29.4 pg (27.0-34.0) 04/16/19 05:16 MCHC 34.4 g/dL (33.0-35.0) 04/16/19 05:16 RDW 13.5 % (11.6-16.5) 04/16/19 05:16 Plt Count 241 X10^3/uL (150.0-450.0) 04/16/19 05:16 MPV 9.1 fL (7.4-11.0) 04/16/19 05:16 Neut % (Auto) 70.3 % (42.0-75.0) 04/16/19 05:16 Lymph % (Auto) 21.7 % (21.0-51.0) 04/16/19 05:16 Mclean % (Auto) 7.3 % (0.0-13.0) 04/16/19 05:16 Eos % (Auto) 0.4 % (0.9-2.9) L 04/16/19 05:16 Baso % (Auto) 0.3 % (0.2-1.0) 04/16/19 05:16 Neut # (Auto) 6.9 x10^3/uL (2.2-4.8) H 04/16/19 05:16 Lymph # (Auto) 2.1 X10^3/uL (1.3-2.9) 04/16/19 05:16 Mclean # (Auto) 0.7 x10^3/uL (0.3-0.8) 04/16/19 05:16 Eos # (Auto) 0.0 x10^3/uL (0.0-0.2) 04/16/19 05:16 Baso # (Auto) 0.0 X10^3/uL (0.0-0.1) 04/16/19 05:16 Absolute Nucleated RBC 0.0 /100WBC 04/16/19 05:16 PT 13.9 SECONDS (11.8-14.3) 04/13/19 22:10 INR Target Range - 04/13/19 22:10 INR 1.11 (0.8-1.3) 04/13/19 22:10 APTT 25.3 SECONDS (22.9-36.5) 04/13/19 22:10 PTT Comment - 04/13/19 22:10 D-Dimer 332 ng/mL (0-400) 04/13/19 22:10 Sodium 140 mmol/L (136-145) 04/16/19 05:16 Corrected Sodium 140 mmol/L (136-145) 04/16/19 05:16 Potassium 3.9 mmol/L (3.5-5.1) 04/16/19 05:16 Chloride 105 mmol/L (98-107) 04/16/19 05:16 Carbon Dioxide 26.0 mmol/L (21-32) 04/16/19 05:16 BUN 13 mg/dL (7-18) 04/16/19 05:16 Creatinine 0.86 mg/dL (0.55-1.02) 04/16/19 05:16 Est GFR (MDRD) Af Amer > 60 (>60) 04/16/19 05:16 Est GFR (MDRD) Non-Af > 60 (>60) 04/16/19 05:16 Glucose 120 mg/dL (65-99) H 04/16/19 05:16 Hemoglobin A1c 6.3 % 04/14/19 05:06 Calcium 9.0 mg/dL (8.5-10.1) 04/16/19 05:16 Corrected Calcium TNP 04/16/19 05:16 Magnesium 2.1 mg/dL (1.7-2.9) 04/15/19 04:50 Total Bilirubin 0.70 mg/dL (0.2-1.0) 04/16/19 05:16 AST 15 Units/L (15-37) 04/16/19 05:16 ALT 14 Units/L (12-78) 04/16/19 05:16 Alkaline Phosphatase 92 Units/L (46-116) 04/16/19 05:16 Creatine Kinase 61 Units/L (26-192) 04/13/19 22:10 CK-MB (CK-2) < 1.0 ng/mL (0-4.0) 04/13/19 22:10 CK/CKMB % Calc 1.6 % (<4) 04/13/19 22:10 Troponin I < 0.02 ng/mL (0-1.5) 04/14/19 14:54 Total Protein 7.1 g/dL (6.4-8.2) 04/16/19 05:16 Albumin 3.4 g/dL (3.4-5.0) 04/16/19 05:16 Globulin 3.7 g/dL (2.5-4.5) 04/16/19 05:16 Albumin/Globulin Ratio 0.9 Ratio (1.1-2.1) L 04/16/19 05:16 Triglycerides 116 mg/dL (0-150) 04/14/19 05:06 Cholesterol 155 mg/dL (0-200) 04/14/19 05:06 LDL Cholesterol, Calc 98 mg/dL (0-100) 04/14/19 05:06 HDL Cholesterol 34 mg/dL (40-60) L 04/14/19 05:06 Cholesterol/HDL Ratio 4.6 (0.0-5.0) 04/14/19 05:06 TSH 3rd Generation 1.367 uIU/mL (0.358-3.74) 04/14/19 05:06 Urine Opiates Screen Negative (NEG=<300) 04/13/19 04:42 Urine Methadone Screen Negative (NEG=<300) 04/13/19 04:42 Ur Barbiturates Screen Negative (NEG=<200) 04/13/19 04:42 Ur Phencyclidine Scrn Negative (NEG=<25) 04/13/19 04:42 Ur Amphetamines Screen Negative (NEG=<1000) 04/13/19 04:42 U Benzodiazepines Scrn Negative (NEG=<200) 04/13/19 04:42 Urine Cocaine Screen Negative (NEG=<300) 04/13/19 04:42 U Marijuana (THC) Screen Negative (NEG=<50) 04/13/19 04:42 Reason For Visit: AMS R/O CVA; RIGHT HEMIPARESIS; ACCELERATED Discharge Date Discharge Date: 04/16/19 Discharge Diagnosis All Active Problems (Updated 04/16/19 @ 11:55 by Ok Rodas) Carotid stenosis, bilateral (Acute) Acute CVA (cerebrovascular accident) (Acute) Prediabetes (Acute) TIA (transient ischemic attack) (Acute) Acute alteration in mental status (Acute) Acute right hemiparesis (Acute) Sinus bradycardia (Acute) Accelerated hypertension (Acute) Cardiomegaly (Acute) Hyperglycemia (Acute) Plan of Treatment: Continue with present treatment and follow up plan. Pt is to keep follow up appointment as instructed and take medications as ordered. Discharge Medications Discharge Medications: No Known Drug Allergies Allergy (Verified 04/13/19 21:32) CONTINUE taking the following medications duloxetine 60 mg PO DAILY 04/13/19 [History] levothyroxine 88 mcg PO DAILY 04/13/19 [History] New Prescriptions aspirin 81 mg PO DAILY 30 Days #30 tab 04/16/19 [Rx] atorvastatin 40 mg PO DAILY 30 Days #30 tab 04/16/19 [Rx] hydrochlorothiazide 12.5 mg PO DAILY 30 Days #30 cap 04/16/19 [Rx] lisinopril 40 mg PO DAILY 30 Days #30 tab 04/16/19 [Rx] Follow up and Referral Follow Up: 1 Week Discharge Disposition Assessment: Stable no acute distress noted at time of discharge. Discharge Disposition: Home
[2019-04-16 12:06] VITALS: BP 178/76
== END 2019-04-16 12:30 | disposition home or self-care (01) ==
LOC: ER 21:18 → MED/SURG 21:18
PROVIDERS: ADMIT Family Medicine; ATTEND Family Medicine
DX: G81.91 Hemiplegia, unspecified affecting right dominant side; G45.8 Other transient cerebral ischemic attacks and related syndromes; I12.9 Hypertensive chronic kidney disease with stage 1 through stage 4 chronic kidney disease, or unspecified chronic kidney disease; I10 Essential (primary) hypertension; R51 Headache; I63.89 Other cerebral infarction; R26.89 Other abnormalities of gait and mobility; R41.82 Altered mental status, unspecified; R73.09 Other abnormal glucose; R00.1 Bradycardia, unspecified; R94.31 Abnormal electrocardiogram [ECG] [EKG]; N18.3 Chronic kidney disease, stage 3 (moderate); R07.89 Other chest pain; E03.8 Other specified hypothyroidism
CPT/HCPCS: 36415; 70450; 70551; 71010; 71045; 80048; 80053; 80061; 80307; 82550; 82553; 83036; 83735; 84443; 84484; 85025; 85378; 85610; 85730; 93005; 93306; 93880; 96360; 96361; 96365; 96372; 96374; 97112; 97116; 97161; 97165; 99284; A4222; Q0177; S0028; G0378; G0434; J0360; J1650; J2405